=== PATIENT | female | born 2000 | race Hispanic/Latino ===

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

== ENCOUNTER 2022-04-12 17:45 | Emergency (ER) | payer MEDICAID ==
[~2022-04-12] VITALS: Ht 157.5 cm; Wt 121.1 kg
[~2022-04-12 17:45] MED LIST: FERR-82 PO; PREN-154 PO
[2022-04-12 18:24] LABS: BASOPHILS % (AUTO) 0.5 % (0.0-5.0); EOSINOPHILS % (AUTO) 1.8 % (0.0-8.0); HEMATOCRIT 42.6 % (36-48); LYMPHOCYTES % (AUTO) 25.9 % (21.0-51.0); MEAN CORPUSCULAR VOLUME 77.3 fL (80-100); MONOCYTES % (AUTO) 6.2 % (3.0-13.0); NEUTROPHILS % (AUTO) 65.2 % (40.0-77.0); PLATELET COUNT (AUTO) 315 K/uL (130-400); RED BLOOD CELL COUNT(AUTO) 5.51 MIL/uL (4.00-5.50); RED CELL DISTRIBUTION WIDTH 14.6 % (11.0-15.5); WHITE BLOOD COUNT (AUTO) 12.4 K/uL (4.8-10.8)
[2022-04-12 18:28] LABS: APPEARANCE,URINE CLOUDY (CLEAR); BILIRUBIN,URINE NEGATIVE (NEGATIVE); COLOR,URINE YELLOW (YELLOW); GLUCOSE, URINE (UA) NEGATIVE (NEGATIVE); KETONES,URINE NEGATIVE (NEGATIVE); LEUKOCYTE ESTERASE ,URINE NEGATIVE (NEGATIVE); NITRATE,URINE NEGATIVE (NEGATIVE); OCCULT BLOOD,URINE NEGATIVE (NEGATIVE); PROTEIN,URINE NEGATIVE (NEGATIVE); UROBILINOGEN,URINE 0.2 mg/dL (0.2-1.0)
[2022-04-12] MEDS ORDERED: KETOROLAC 30MG VIAL (30MG/ML) IVP ONE (18:30)
[2022-04-12] MEDS ORDERED: ONDANSETRON 4MG INJ IVP ONE (18:30)
[2022-04-12 18:33] LABS: CREATININE 0.8 mg/dL (0.5-1.5); HCG,QUALITATIVE URINE NEGATIVE (NEGATIVE); POTASSIUM 4.6 mmol/L (3.5-5.1)
[2022-04-12 18:39] LABS: ALBUMIN 3.7 g/dL (3.5-5.0)
[2022-04-12 18:40] LABS: BACTERIA,URINE Few /HPF (None Seen); MUCUS,URINE Rare LPF (None Seen); RBC,URINE 0-1 /HPF (0-1); SQUAMOUS EPITHELIAL CELL,UR Moderate /HPF (0-2); WBC,URINE 0-1 /HPF (0-1)
[2022-04-12 19:20] VITALS: BP 110/74
[2022-04-12] MEDS ORDERED: IBUP-2071 PO (20:08)
[2022-04-12] MEDS ORDERED: FAMO-136 PO (20:08)
[2022-04-12] MEDS ORDERED: DICY20TA2 PO (20:08)
== END 2022-04-12 20:21 | disposition home or self-care (01) ==
LOC: EDH 17:45
DX: K80.20 Calculus of gallbladder without cholecystitis without obstruction (principal); N83.201 Unspecified ovarian cyst, right side; E66.01 Morbid (severe) obesity due to excess calories; Z68.42 Body mass index [BMI] 45.0-49.9, adult; Z79.1 Long term (current) use of non-steroidal anti-inflammatories (NSAID)
CPT/HCPCS: 99284; 74176; 96374; 96375; 84484; 80053; 83690; 85025; 81001; 81025; 36415; J2405; J1885

== ENCOUNTER 2023-08-15 21:23 | Emergency (ER) | payer MEDICAID ==
[~2023-08-15] VITALS: Ht 152.4 cm; Wt 113.4 kg
[~2023-08-15 21:23] MED LIST changes: +DICY20TA2 PO; +FAMO-136 PO; +IBUP-2071 PO
[2023-08-15 21:32] VITALS: BP 97/77; PULSE 83; RESP 18
== END 2023-08-16 02:33 | disposition left against medical advice (07) ==
LOC: EDH 21:23
DX: R10.9 Unspecified abdominal pain (principal); Z53.21 Procedure and treatment not carried out due to patient leaving prior to being seen by health care provider
CPT/HCPCS: 99281